=== PATIENT | female | born 1985 | race African-American/Black ===

== ENCOUNTER 2020-12-21 21:05 | Emergency (ER) | payer MEDICAID ==
[~2020-12-21] VITALS: Ht 154.9 cm; Wt 99.8 kg
[2020-12-21] MEDS ORDERED: LAMICTAL25 MG PO (21:21)
[2020-12-21] MEDS ORDERED: BUSPAR30 MG PO (21:21)
[2020-12-21] MEDS ORDERED: IBUPROFEN 800800 M1 PO (21:57)
[2020-12-21 22:08] VITALS: BP 117/88
== END 2020-12-21 22:08 | disposition home or self-care (01) ==
LOC: M.ERS 21:05
DX: S50.02XA Contusion of left elbow, initial encounter (principal); W10.8XXA Fall (on) (from) other stairs and steps, initial encounter; Y93.89 Activity, other specified; Y92.89 Other specified places as the place of occurrence of the external cause; Y99.8 Other external cause status

== ENCOUNTER 2021-01-25 18:18 | Emergency (ER) | payer MEDICAID ==
[~2021-01-25] VITALS: Ht 157.5 cm; Wt 99.8 kg
[~2021-01-25 18:18] MED LIST: BUSPAR30 MG PO; IBUPROFEN 800800 M1 PO; LAMICTAL25 MG PO
[2021-01-25 19:21] LABS: URINE BILIRUBIN NEGATIVE (Negative); URINE BLOOD NEGATIVE (Negative); URINE CLARITY CLEAR; URINE COLOR YELLOW; URINE GLUCOSE-RANDOM NEGATIVE (Negative); URINE KETONES NEGATIVE (Negative); URINE LEUKOCYTES-REFLEX NEGATIVE (Negative); URINE NITRITE-REFLEX NEGATIVE (Negative); URINE PROTEIN NEGATIVE (Negative); URINE SPECIFIC GRAVITY 1.025 (1.005-1.030); URINE UROBILINOGEN 0.2 E.U./dl (0.2-1.0)
[2021-01-25 19:52] LABS: ABSOLUTE BASOPHILS 0.1 thou/uL (0.0-0.2); ABSOLUTE EOSINOPHILS 0.4 thou/uL (0.0-0.7); ABSOLUTE LYMPHOCYTES 2.7 thou/uL (0.8-5.3); ABSOLUTE MONOCYTES 0.5 thou/uL (0.0-1.2); ABSOLUTE NEUTROPHILS 2.9 thou/uL (1.6-8.1); BASOPHILS 1.4 %; EOSINOPHILS 6.1 %; HEMATOCRIT 39.1 % (37.0-47.0); HEMOGLOBIN 12.4 gm/dL (12.0-15.0); LYMPHOCYTES 41.4 %; MCH 26.2 pg (26.0-34.0); MCHC 31.8 g/dL (28.0-37.0); MCV 82.5 fL (80.0-100.0); MPV 9.9 fl. (7.2-11.1); NUCLEATED RBCS 0 /100WBC; PLATELET COUNT* 333 thou/uL (150-400); POLYS 44.1 %; RBC 4.75 mil/uL (4.20-5.00); RDW-CV 15.3 % (10.5-14.5); WBC 6.5 thou/uL (4.0-11.0)
[2021-01-25 19:54] LABS: ALBUMIN 3.4 g/dL (3.4-5.0); CALCIUM 8.9 mg/dL (8.5-10.1); CREATININE 0.9 mg/dL (0.6-1.3); POTASSIUM 4.2 mmol/L (3.5-5.1); TOTAL BILIRUBIN 0.1 mg/dL (<0.1-1.0); TOTAL PROTEIN 7.8 g/dL (6.4-8.2)
[2021-01-25] MEDS ORDERED: SEROQUEL200 MG PO (19:54)
[2021-01-25] MEDS ORDERED: SPRINTEC1 EACH PO (19:54)
[2021-01-25 21:08] LABS: APTT 24.7 Seconds (25.0-31.3); INR 0.9; PROTIME 9.9 Seconds (9.20-11.50)
[2021-01-25 22:30] VITALS: BP 135/84
--- NOTE | 2021-01-26 14:24 | EKG ---
[place] [address] ELECTROCARDIOGRAM REPORT Name: DANIELLE BELL Room: [facility]#: [id number] Admission: 01/25/21 Attend Phys: Discharge: 01/25/21 Date of : 89 Date of Service: 01/25/21 1826 Report #: [id number] THIS REPORT FOR: //name// 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
--- NOTE | 2021-01-26 14:25 | EKG ---
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
== END 2021-01-25 22:30 | disposition home or self-care (01) ==
LOC: M.ERS 18:18
PROVIDERS: Nurse Practitioner Family
DX: R55 Syncope and collapse (principal); R07.89 Other chest pain; Z86.73 Personal history of transient ischemic attack (TIA), and cerebral infarction without residual deficits; Z79.899 Other long term (current) drug therapy